=== PATIENT | female | born 1960 | race Caucasian/White ===

== ENCOUNTER 2017-12-22 11:22 | Emergency (ER) | payer SELFPAY ==
[~2017-12-22] VITALS: Ht 162.6 cm; Wt 80.0 kg
[2017-12-22] MEDS ORDERED: INSULIN (11:28)
[2017-12-22] MEDS ORDERED: ASPIRIN 81MG TABLET PO ONE (12:15)
[2017-12-22 12:49] LABS: HEMATOCRIT. 36.7 % (36.0-48.0); HEMOGLOBIN. 12.8 g/dL (12.0-16.0); MEAN CORPUSCULAR HEMOGLOBIN 29.1 pg (28.0-32.0); MEAN CORPUSCULAR VOLUME 83.4 fL (81.0-99.0); MEAN PLATELET VOLUME 8.2 fl (7.4-10.4); PLATELET 251 x1000/uL (130-400); RED BLOOD CELL COUNT 4.41 mill/uL (4.2-5.4); RED CELL DISTRIBUTION WIDTH 13.4 % (11.6-14.6)
[2017-12-22 12:59] LABS: CHLORIDE 104 mEq/L (98-107)
[2017-12-22 13:00] LABS: D-DIMER 1.89 mg/L FEU (<0.50); PARTIAL THROMBOPLASTIN TIME 24.8 sec (23.4-31.0)
[2017-12-22 13:18] LABS: PLATELET ESTIMATE NORMAL
[2017-12-22] MEDS ORDERED: IOHEXOL-350 100 ML BOTTLE ONE (15:14)
[2017-12-22 17:45] VITALS: BP 169/91
== END 2017-12-22 18:00 | disposition home or self-care (01) ==
LOC: ER 11:27
DX: R07.9 Chest pain, unspecified (principal); R05 Cough; R50.9 Fever, unspecified; E11.9 Type 2 diabetes mellitus without complications; I10 Essential (primary) hypertension; Z79.4 Long term (current) use of insulin
CPT/HCPCS: 36415; 71045; 71275; 80053; 81025; 83880; 84484; 85025; 85379; 85610; 85730; 87040; 87804; 93005; 99285; Q9967; Z7610